=== PATIENT | female | born 1980 | race Two or more races ===

== ENCOUNTER 2018-04-26 12:13 | Outpatient (CLI) | payer OTHER ==
[~2018-04-26 12:13] MED LIST: CIPRO500 MG PO; METHYLERGO0.2 MG/1 M PO; ULTRACET PO; [UNRECOGNIZED DRUG - OTHER] PO
== END 2018-04-26 14:48 | disposition home or self-care (01) ==
LOC: RX STUDY 12:13
DX: N93.0 Postcoital and contact bleeding (principal)

== ENCOUNTER 2024-05-07 10:52 | Outpatient (CLI) | payer OTHER | END 2024-05-07 10:53 | disposition home or self-care (01) | LOC: NUCLEAR 10:52 | PROVIDERS: ATTEND Internal Medicine Hematology & Oncology | DX: I82.402 Acute embolism and thrombosis of unspecified deep veins of left lower extremity (principal) ==